=== PATIENT | female | born 1990 | race African-American/Black ===

== ENCOUNTER 2022-06-02 21:26 | Emergency (ER) | payer MEDICARE ==
[~2022-06-02] VITALS: Ht 165.1 cm; Wt 86.7 kg
[2022-06-02 21:50] VITALS: BP 175/89
[2022-06-02 23:47] LABS: BASOPHILS % 0.7 % (0.0-2.0); EOSINOPHILS % 1.9 % (0.0-5.0); HEMATOCRIT. 32.7 % (36.0-48.0); LYMPHOCYTES % 18.3 % (20.0-50.0); MEAN CORPUSCULAR HEMOGLOBIN 32.8 pg (28.0-32.0); MEAN CORPUSCULAR VOLUME 97.7 fL (81.0-99.0); MEAN PLATELET VOLUME 10.2 fl (7.4-10.4); MONOCYTES % 9.9 % (2.0-8.0); NEUTROPHILS % 69.2 % (40.0-76.0); PLATELET 154 x1000/uL (130-400); RED BLOOD CELL COUNT 3.35 mill/uL (4.2-5.4)
[2022-06-02 23:49] LABS: CHLORIDE 101 mEq/L (98-107)
[2022-06-02 23:58] LABS: HCG SCREEN NEGATIVE
[2022-06-03] MEDS ORDERED: IBUPROFEN 600MG TABLET PO ONE (01:00)
[2022-06-03] MEDS ORDERED: CLIN-194 MT (03:08)
[2022-06-03] MEDS ORDERED: IBUP-2028 MT (03:08)
== END 2022-06-03 03:50 | disposition home or self-care (01) ==
LOC: ER 21:52
DX: N64.4 Mastodynia (principal); D25.9 Leiomyoma of uterus, unspecified; E11.9 Type 2 diabetes mellitus without complications; I10 Essential (primary) hypertension; Z88.0 Allergy status to penicillin
CPT/HCPCS: 36415; 74176; 76641; 76830; 76856; 80053; 84703; 85025; 99285